=== PATIENT | female | born 1955 | race Caucasian/White ===

== ENCOUNTER → 2018-05-31 | Outpatient (CLI) | payer MEDICARE, OTHER ==
[2014-07-10 07:58] VITALS: BP 94/57
[~2018-05-31] MED LIST: ALPR0.254 PO; FLUO40CA2 PO; METO100T7 PO; SIMV80TA17 PO; TIZA4TAB PO
--- NOTE | 2018-05-31 16:13 | KCIC ---
EXAM: Cervical spine MRI without contrast. HISTORY: Radiculitis. TECHNIQUE: Multiplanar, multisequence magnetic resonance imaging of the cervical spine was performed without contrast. COMPARISON: None. FINDINGS: There is noninstrumented fusion with bony bridging and C5-C6. There is straightening of cervical lordosis. There is minimal anterolisthesis of C2 on C3 and C3 on C4 and mild retrolisthesis of C4 on C5. There is degenerative endplate remodeling with disc space narrowing and osteophytosis primarily at C4-C5 and C6-C7. No spinal cord lesion is seen. There is nonspecific T2 hyperintensity within the vickey, most commonly due to chronic small vessel disease. There is no suspicious osseous lesion. There is no acute or subacute fracture. There is scarring and postoperative susceptibility effect within the inferior posterior neck soft tissues. At C2-C3, there is a posterior central disc protrusion. There is mild right and severe left facet arthropathy. There is mild left foraminal stenosis. At C3-C4, there is a right posterior lateral predominant disc bulge and endplate osteophytosis. There is mild right and severe left facet arthropathy. There is right greater than left uncovertebral arthropathy. There is moderate left foraminal stenosis. At C4-C5, there are right greater than left posterior lateral disc osteophyte complexes superimposed on a disc bulge and endplate osteophytosis. There is mild right and moderate to severe left facet arthropathy. There is bilateral uncovertebral arthropathy. There is moderate to severe right and severe left foraminal stenosis. At C5-C6, there is noninstrumented fusion. There is mild left facet arthropathy. There is mild left foraminal stenosis. At C6-C7, there is a diffuse disc bulge and endplate osteophytosis. There is mild right and mild to moderate left facet arthropathy. There is bilateral uncovertebral arthropathy. There is mild bilateral foraminal stenosis. There is mild central canal stenosis measuring 8.5 mm in anterior posterior dimension. IMPRESSION: 1. Multilevel degenerative change of the cervical spine, described in detail above. This results in mild left foraminal stenosis at C2-C3, moderate left foraminal stenosis at C3-C4, moderate to severe right and severe left foraminal stenosis at C4-C5, mild left foraminal stenosis at C5-C6, and mild bilateral foraminal and central canal stenosis at C6-C7. 2. Noninstrumented fusion with bony bridging at C5-C6. 3. Mild reversal of cervical lordosis and slight listhesis at multiple levels. Electronically signed by: Erica Georges MD (05/31/2018 4:10 PM) [place] [id number]
== END | disposition home or self-care (01) ==
LOC: KCIC MRI 14:21
PROVIDERS: ATTEND Physical Medicine & Rehabilitation
DX: M47.22 Other spondylosis with radiculopathy, cervical region (principal); M50.11 Cervical disc disorder with radiculopathy, high cervical region; M48.02 Spinal stenosis, cervical region; M43.22 Fusion of spine, cervical region; M12.88 Other specific arthropathies, not elsewhere classified, other specified site
CPT/HCPCS: 72141